=== PATIENT | male | born 1960 | race African-American/Black ===

== ENCOUNTER 2017-02-16 13:54 | Inpatient (IN) | payer SELFPAY ==
[~2017-02-16] VITALS: Ht 180.3 cm; Wt 77.1 kg
[~2017-02-16 13:54] MED LIST: ALBUTEROL
[2017-02-16] MEDS ORDERED: FAMOTIDINE 20MG/2ML VIAL IV ONE (14:30)
[2017-02-16] MEDS ORDERED: METHYLPREDNISOLONE SOD SUCC 125 MG/2 ML VIAL IV ONE (14:45)
[2017-02-16] MEDS ORDERED: SODIUM CHLORIDE 0.9% 1,000 ML IV ONE (14:45)
[2017-02-16 14:55] LABS: BASOPHILS % 0.3 % (0.0-2.0); EOSINOPHILS % 1.6 % (0.0-5.0); HEMATOCRIT. 40.8 % (42.0-52.0); HEMOGLOBIN. 13.7 g/dL (14.0-18.0); LYMPHOCYTES % 11.6 % (20.0-50.0); MEAN CORPUSCULAR HEMOGLOBIN 29.3 pg (28.0-32.0); MEAN CORPUSCULAR VOLUME 87.3 fL (80.0-94.0); MEAN PLATELET VOLUME 7.2 fl (7.4-10.4); MONOCYTES % 4.9 % (2.0-8.0); NEUTROPHILS % 81.6 % (40.0-76.0); PLATELET 280 x1000/uL (130-400); RED BLOOD CELL COUNT 4.67 mill/uL (4.7-6.1); RED CELL DISTRIBUTION WIDTH 13.6 % (11.6-14.6)
[2017-02-16 15:02] LABS: CHLORIDE 107 mEq/L (98-107)
[2017-02-16 15:04] LABS: PARTIAL THROMBOPLASTIN TIME 26.1 sec (24.0-34.0); PROTHROMBIN TIME 10.9 sec
[2017-02-16 15:09] LABS: CARBON DIOXIDE 28 mEq/L (21-32)
[2017-02-16 15:17] LABS: TROPONIN I < 0.02 ng/mL (0.00-0.04)
[2017-02-16 17:26] LABS: CREATINE KINASE 531 IU/L (39-308)
[2017-02-16 18:26] VITALS: BP 107/57
[2017-02-16 18:42] VITALS: BP 107/57
[2017-02-16] MEDS ORDERED: ONDANSETRON HCL 4MG/2ML VIAL IV PRN (20:15)
[2017-02-16] MEDS ORDERED: MAGNESIUM/ALUMINUM HYDROXIDE/SIMETHICONE 30ML UDC PO PRN (20:15)
[2017-02-16] MEDS ORDERED: DIPHENHYDRAMINE 50MG/ML VIAL IV PRN (20:15)
[2017-02-16] MEDS ORDERED: ACETAMINOPHEN 325MG TABLET PO PRN (20:15)
[2017-02-16] MEDS ORDERED: DEXAMETHASONE 10MG/ML 1ML VIAL IV NR (20:15)
[2017-02-16] MEDS ORDERED: IPRATROPIUM/ALBUTEROL 0.5-3(2.5)MG/3ML NEB INH PRN (20:15)
[2017-02-16 20:16] VITALS: BP 102/60
[2017-02-16] MEDS: FAMOTIDINE 20MG/2ML VIAL IV SCH (21:23)
[2017-02-16] MEDS: SODIUM CHLORIDE 0.9% INJ 3ML FLUSH IVF SCH (21:23)
[2017-02-16] MEDS ORDERED: METHYLPREDNISOLONE SOD SUCC 125 MG/2 ML VIAL IV SCH (22:00)
[2017-02-17 00:45] VITALS: BP 130/76
[2017-02-17 04:00] VITALS: BP 114/71
[2017-02-17] MEDS: SODIUM CHLORIDE 0.9% INJ 3ML FLUSH IVF SCH (06:22)
[2017-02-17 08:22] VITALS: BP 130/82
[2017-02-17] MEDS: FAMOTIDINE 20MG/2ML VIAL IV SCH (08:44)
[2017-02-17 12:57] VITALS: BP 122/73
[2017-02-17 14:31] VITALS: BP 122/73
== END 2017-02-17 13:15 | disposition home or self-care (01) | DRG 811 ==
LOC: ER 14:03 → 5WST 15:05 → EDBEDREQ 15:09 → ENRESERV 16:15
PROVIDERS: ADMIT Internal Medicine; ATTEND Internal Medicine
DX: T78.09XA Anaphylactic reaction due to other food products, initial encounter (principal); E86.0 Dehydration; F12.90 Cannabis use, unspecified, uncomplicated; J45.909 Unspecified asthma, uncomplicated; H53.2 Diplopia; W57.XXXA Bitten or stung by nonvenomous insect and other nonvenomous arthropods, initial encounter; Z72.0 Tobacco use; Y92.007 Garden or yard of unspecified non-institutional (private) residence as the place of occurrence of the external cause; Z82.49 Family history of ischemic heart disease and other diseases of the circulatory system
CPT/HCPCS: 36415; 70450; 71010; 80053; 82550; 82553; 83735; 83880; 84484; 85025; 85610; 85730; 93005; 96361; 96374; 96375; 99291; J1100; J2930; J3490; J7030

== ENCOUNTER 2017-08-17 10:48 | Emergency (ER) | payer MEDICAID ==
[~2017-08-17] VITALS: Ht 172.7 cm; Wt 70.0 kg
[2017-08-17] MEDS ORDERED: KETOROLAC 30MG/ML VIAL IM ONE (12:45)
[2017-08-17 12:48] VITALS: BP 113/89
== END 2017-08-17 12:54 | disposition home or self-care (01) ==
LOC: ER 10:51
DX: J10.1 Influenza due to other identified influenza virus with other respiratory manifestations (principal); J45.909 Unspecified asthma, uncomplicated; R19.7 Diarrhea, unspecified; F17.210 Nicotine dependence, cigarettes, uncomplicated
CPT/HCPCS: 71020; 87804; 96372; 99285; J1885

== ENCOUNTER 2018-10-04 18:29 | Emergency (ER) | payer MEDICAID ==
[~2018-10-04] VITALS: Ht 180.3 cm; Wt 79.0 kg
[2018-10-05] MEDS ORDERED: CYCLOBENZAPRINE 10MG TABLET PO ONE (05:15)
[2018-10-05] MEDS ORDERED: KETOROLAC 30MG/ML VIAL IM ONE (05:15)
[2018-10-05 06:52] VITALS: BP 129/70
== END 2018-10-05 06:56 | disposition home or self-care (01) ==
LOC: ER 23:33
DX: M79.605 Pain in left leg (principal); M79.652 Pain in left thigh; F17.200 Nicotine dependence, unspecified, uncomplicated; F12.10 Cannabis abuse, uncomplicated; J45.909 Unspecified asthma, uncomplicated
CPT/HCPCS: 96372; 99283; J1885